=== PATIENT | male | born 1985 | race Caucasian/White ===

== ENCOUNTER 2024-11-18 07:58 | Outpatient (CLI) | payer MEDICARE, MEDICAID, SELFPAY | END 2024-11-18 07:59 | disposition home or self-care (01) | LOC: AMB 12-03 10:41 | PROVIDERS: PCP Family Medicine; Visit Provider Family Medicine | DX: F22 Delusional disorders (principal); R45.1 Restlessness and agitation | CPT/HCPCS: A0425; A0427 ==

== ENCOUNTER 2025-04-07 10:25 | Outpatient (CLI) | payer MEDICARE, MEDICAID, SELFPAY | END 2025-04-07 10:26 | disposition home or self-care (01) | LOC: AMB 04-09 08:48 | PROVIDERS: PCP Family Medicine; Visit Provider Emergency Medicine | DX: F23 Brief psychotic disorder (principal) | CPT/HCPCS: A0425; A0427 ==